=== PATIENT | male | born 1970 | race Caucasian/White ===

== ENCOUNTER 2017-06-23 17:25 | Emergency (ER) | payer BC, OTHER ==
[2017-06-23 17:31] VITALS: BP 131/84; PULSE 93; TEMP 98; BMI 36.9
--- NOTE | 2017-06-23 18:26 | PDOC ---
History of Present Illness - General Chief Complaint: Injury Stated Complaint: INJURY TO WRIST. Time Seen by Provider: 06/23/17 18:07 History Source: Patient Exam Limitations: No Limitations - History of Present Illness Initial Comments: 06/23/17 18:26 46-year-old male presents to the ED with complaints of left wrist pain. Patient states had fallen yesterday and now with pain upon movement. Patient denies recent injury to affected area, radiation of pain, or sensory changes distal of injury. Occurred: reports: just prior to arrival Severity: reports: mild Pain Location: reports: upper extremity Method of Injury: Yes: fall Associated Symptoms (Fall): denies symptoms Past History - Travel Traveled outside of the country in the last 30 days: No - Past Medical History Allergies/Adverse Reactions: Allergies Allergy/AdvReac Type Severity Reaction Status Date / Time No Known Allergies Allergy Verified 06/23/17 17:28 Home Medications: Ambulatory Orders NK [No Known Home Medication] 12/25/13 Other medical history: NONE - Psycho/Social/Smoking Cessation Hx Anxiety: No Suicidal Ideation: No Smoking History: Never smoked Have you smoked in the past 12 months: No Information on smoking cessation initiated: No Hx Alcohol Use: No Drug/Substance Use Hx: No Substance Use Type: None Patient Lives Alone: No Lives with/in: spouse/SO Review of Systems - Review of Systems Able to Perform ROS?: Yes Musculoskeletal: Yes: Joint Pain (left wrist), Joint Swelling (mild left wrist) Integumentary: No: Symptoms Reported Neurological: No: Paresthesia, Weakness *Physical Exam - Vital Signs Last Vital Signs Temp Pulse Resp BP Pulse Ox 98.0 F 93 H 18 131/84 100 06/23/17 17:29 06/23/17 17:29 06/23/17 17:29 06/23/17 17:29 06/23/17 17:29 - Physical Exam General Appearance: Yes: Nourished, Appropriately Dressed. No: Apparent Distress Extremity: positive: Normal Capillary Refill, Normal Inspection. negative: Normal Range of Motion (unble to fully dorsiflex the left wrist) Integumentary: positive: Normal Color, Warm, Moist Neurologic: positive: Motor Strength 5/5 (left hand grasp. ambulatory) ED Treatment Course - RADIOLOGY Radiology Studies Ordered: Category Date Time Status WRIST-LEFT [RAD] Stat Radiology 06/23/17 18:08 Ordered Medical Decision Making - Medical Decision Making 06/23/17 18:24 Patient status post fall complaining of left wrist pain. Patient had mild to no tenderness over the distal aspect of left radius. X-ray ordered. 06/23/17 18:45 X-ray with questionable commun. Left distal radial fracture. Patient placed in splint and given referral to Dr. Huertas *DC/Admit/Observation/Transfer Diagnosis at time of Disposition: Left wrist fracture Qualifiers: Encounter type: initial encounter Fracture type: closed Qualified Code(s): S62.102A - Fracture of unspecified carpal bone, left wrist, initial encounter for closed fracture - Discharge Dispostion Disposition: HOME Condition at time of disposition: Good - Referrals Referrals: Eloy De Leon MD [Primary Care Provider] - Wyatt Huertas MD [Staff Physician] - - Patient Instructions Printed Discharge Instructions: DI for Wrist Fracture Additional Instructions: Please follow-up with Dr. Lao as discussed and wear splint until seen. May take Motrin for discomfort and elevate as much as possible
== END 2017-06-23 18:57 | disposition home or self-care (01) ==
LOC: JERFT 17:25
PROC: 2W3DX1Z Immobilization of Left Lower Arm using Splint (ICD-10-PCS; principal; 2017-06-23)
DX: S52.515A Nondisplaced fracture of left radial styloid process, initial encounter for closed fracture (principal); W19.XXXA Unspecified fall, initial encounter; Y93.89 Activity, other specified; Y92.89 Other specified places as the place of occurrence of the external cause; Y99.8 Other external cause status
CPT/HCPCS: 73110-TC-LT; 99281-25

== ENCOUNTER 2021-05-23 21:13 | Inpatient (IN) | payer BC ==
[2021-05-24] MEDS ORDERED: ACETAMINOPHEN 1000 MG/100 ML VIAL (NON FORMULARY) IVPB ONE (00:04)
[2021-05-24] MEDS ORDERED: ACETAMINOPHEN INJECTION 100 ML IVPB ONE (00:16)
[2021-05-24] MEDS ORDERED: SODIUM CHLORIDE 0.9% 500 ML INFUS.BAG IV ONE (00:19)
[2021-05-24 01:08] LABS: BASO % 0.2 % (0-2.0); HEMATOCRIT 40.7 % (35.4-49); HEMOGLOBIN 13.8 GM/dL (11.7-16.9); LYMPH % 5.5 % (8-40); MCH 28.9 pg (25.7-33.7); MCHC 33.9 g/dl (32.0-35.9); MEAN CELL VOLUME 85.2 fl (80-96); MEAN PLT VOLUME 9.4 fl (7.5-11.1); NEUT % 88.3 % (42.8-82.8); PLATELET COUNT 212 10^3/uL (134-434); RBC 4.77 M/mm3 (4.00-5.60); RDW 13.4 % (11.9-15.9); VENOUS BASE EXCESS 1.1 mmol/L (-2-2); VENOUS O2 SATURATION 38.6 % (70-80); VENOUS PCO2 43.5 mmHg (38-52); VENOUS PH 7.399 (7.310-7.410); WHITE BLOOD COUNT 13.5 K/mm3 (4.0-10.0)
[2021-05-24 01:20] LABS: INR 1.18 (0.83-1.09); PROTHROMBIN TIME (PATIENT) 14.5 SEC (9.7-13.0)
[2021-05-24 01:22] LABS: ACTIVATED PTT 26.9 SECONDS (25.2-36.5)
[2021-05-24 01:36] LABS: CHLORIDE 104 mmol/L (98-107); SODIUM 137 mmol/L (136-145)
[2021-05-24] MEDS ORDERED: IBUPROFEN 600 MG TABLET (FP) PO ONE ×2 (01:36→01:52)
[2021-05-24 01:37] LABS: CALCIUM 8.4 mg/dL (8.5-10.1)
[2021-05-24 01:38] LABS: ALBUMIN 3.5 g/dl (3.4-5.0); ANION GAP 11 MMOL/L (8-16); BLOOD UREA NITROGEN 16.2 mg/dL (7-18); CO2 23 mmol/L (21-32); GLUCOSE,RANDOM 139 mg/dL (74-106)
[2021-05-24 01:42] LABS: BILIRUBIN,DIRECT 0.3 mg/dL (0.0-0.2); CREATININE 1.4 mg/dL (0.55-1.3); SGOT/AST 50 U/L (15-37); SGPT/ALT 100 U/L (13-61)
[2021-05-24 01:43] LABS: BILIRUBIN,TOTAL 0.6 mg/dL (0.2-1); LACTIC ACID 2.1 mmol/L (0.4-2.0); LDH 271 U/L (87-246); N-TERMINAL BNP 183.1 pg/ml (5-125); TOT PROT 7.2 g/dl (6.4-8.2)
[2021-05-24 01:44] LABS: ALK PHOS 138 U/L (45-117)
[2021-05-24] MEDS ORDERED: CEFTRIAXONE 1 GM in DEXTROSE 5%-WATER - 50 ML IVPB ONE (02:29)
[2021-05-24] MEDS ORDERED: AZITHROMYCIN IVPB 500 MG in DEXTROSE 5%-WATER - 250 ML IVPB ONE (02:29)
[2021-05-24] MEDS ORDERED: CEFTRIAXONE 1 GM/50 ML BAG ONE ×2 (02:57→09:21)
[2021-05-24] MEDS ORDERED: AZITHROMYCIN IVPB 500 MG/250 ML BAG IVPB ONE (02:58)
[2021-05-24] MEDS ORDERED: HEPARIN NA (PORCINE) 5,000 UNITS/ML 1ML VIAL ONE (09:20)
[2021-05-24] MEDS: SODIUM CHLORIDE 1,000 ML IV SCH (09:37)
[2021-05-24] MEDS: HEPARIN NA (PORCINE) 5,000 UNITS/ML 1ML VIAL SQ SCH ×2 (09:37→21:33)
[2021-05-24] MEDS ORDERED: CEFTRIAXONE 1 GM in DEXTROSE 5%-WATER - 50 ML IVPB SCH (10:00)
[2021-05-24 11:12] VITALS: BMI 39.8
[2021-05-24] MEDS: guaiFENesin/CODEINE 5 ML UNIT-DOSE CUPS PO PRN ×2 (11:58→21:33)
[2021-05-24 12:11] LABS: EPI CELLS 8 /uL (0-25.1); HYALINE CASTS 2 /uL (0-3.1); PH,URINE 5.5 (5.0-8.0); URINE APPEARANCE CLEAR; URINE BACTERIA 10 /uL (0-1359); URINE BILIRUBIN NEGATIVE (NEGATIVE); URINE COLOR YELLOW; URINE GLUCOSE (UA) NEGATIVE (NEGATIVE); URINE KETONE TRACE (NEGATIVE); URINE LEUK ESTERASE NEGATIVE (NEGATIVE); URINE NITRITE NEGATIVE (NEGATIVE); URINE PROTEIN 1+ (NEGATIVE); URINE RBC 15 /uL (0-23.9); URINE WBC 10 /uL (0-25.8)
[2021-05-24] MEDS: ALBUTEROL SO4 2.5/IPRATROPIUM 0.5 INH SOL 3 ML VIAL.NEB. NEB PRN ×2 (21:33→21:49)
[2021-05-24] MEDS ORDERED: ACETAMINOPHEN 500 MG TABLET (FP) PO ONE (21:46)
[2021-05-25] MEDS: SODIUM CHLORIDE 1,000 ML IV SCH ×2 (01:42→15:59)
[2021-05-25] MEDS ORDERED: DEXTROSE 5%-WATER 100 ML IVPB ONE (09:57)
[2021-05-25] MEDS: HEPARIN NA (PORCINE) 5,000 UNITS/ML 1ML VIAL SQ SCH ×2 (10:11→21:44)
[2021-05-25] MEDS: CEFTRIAXONE 2 GM in DEXTROSE 5%-WATER 2 GM/100 ML BAG IVPB SCH (10:11)
[2021-05-25] MEDS: AZITHROMYCIN IVPB 500 MG/250 ML BAG IVPB SCH (10:13)
[2021-05-25] MEDS: guaiFENesin/CODEINE 5 ML UNIT-DOSE CUPS PO PRN (10:13)
[2021-05-25 11:32] LABS: BASO % 0.9 % (0-2.0); EOS % 1.2 % (0-4.5); HEMATOCRIT 40.1 % (35.4-49); HEMOGLOBIN 13.3 GM/dL (11.7-16.9); LYMPH % 17.3 % (8-40); MCH 28.6 pg (25.7-33.7); MCHC 33.3 g/dl (32.0-35.9); MEAN CELL VOLUME 85.9 fl (80-96); MEAN PLT VOLUME 9.8 fl (7.5-11.1); NEUT % 69.6 % (42.8-82.8); PLATELET COUNT 194 10^3/uL (134-434); RBC 4.67 M/mm3 (4.00-5.60); RDW 13.6 % (11.9-15.9); WHITE BLOOD COUNT 7.1 K/mm3 (4.0-10.0)
[2021-05-25 11:59] LABS: BILIRUBIN,TOTAL 0.4 mg/dL (0.2-1); TOT PROT 6.6 g/dl (6.4-8.2)
[2021-05-25 12:00] LABS: CREATININE 1.1 mg/dL (0.55-1.3); PHOSPHOROUS 2.7 mg/dL (2.5-4.9)
[2021-05-25 12:02] LABS: BLOOD UREA NITROGEN 14.3 mg/dL (7-18); CALCIUM 8.4 mg/dL (8.5-10.1)
[2021-05-25 12:03] LABS: ALBUMIN 2.9 g/dl (3.4-5.0)
[2021-05-25] MEDS ORDERED: SODIUM CHLORIDE 0.45% 1,000 ML IV SCH (16:00)
[2021-05-26] MEDS: guaiFENesin/CODEINE 5 ML UNIT-DOSE CUPS PO PRN (02:17)
[2021-05-26 05:08] LABS: HEPATITIS C VIRUS EIA <0.1 s/co ratio (0.0-0.9)
[2021-05-26] MEDS ORDERED: DEXTROSE 5%-WATER 100 ML IVPB ONE (09:43)
[2021-05-26] MEDS: HEPARIN NA (PORCINE) 5,000 UNITS/ML 1ML VIAL SQ SCH ×2 (09:47→21:28)
[2021-05-26] MEDS: CEFTRIAXONE 2 GM in DEXTROSE 5%-WATER 2 GM/100 ML BAG IVPB SCH (09:47)
[2021-05-26] MEDS: AZITHROMYCIN IVPB 500 MG/250 ML BAG IVPB SCH (09:49)
[2021-05-26 15:54] LABS: PH,URINE 6.5 (5.0-8.0); URINE APPEARANCE CLEAR; URINE BILIRUBIN NEGATIVE (NEGATIVE); URINE COLOR YELLOW; URINE GLUCOSE (UA) NEGATIVE (NEGATIVE); URINE KETONE NEGATIVE (NEGATIVE); URINE LEUK ESTERASE NEGATIVE (NEGATIVE); URINE NITRITE NEGATIVE (NEGATIVE); URINE PROTEIN NEGATIVE (NEGATIVE)
[2021-05-26 17:07] LABS: MYCOPLASMA PNEUMONIAE,IG G AB 326 U/mL (0-99); MYCOPLASMA PNEUMONIAE,IGM AB <770 U/mL (0-769)
[2021-05-26 17:07] LABS: HEP B CORE AB, TOT Negative (Negative)
[2021-05-27] MEDS ORDERED: DEXTROSE 5%-WATER 100 ML IVPB ONE (09:38)
[2021-05-27 09:48] LABS: BLOOD UREA NITROGEN 14.2 mg/dL (7-18); CALCIUM 8.5 mg/dL (8.5-10.1)
[2021-05-27] MEDS: HEPARIN NA (PORCINE) 5,000 UNITS/ML 1ML VIAL SQ SCH ×2 (09:51→22:10)
[2021-05-27] MEDS: CEFTRIAXONE 2 GM in DEXTROSE 5%-WATER 2 GM/100 ML BAG IVPB SCH (09:51)
[2021-05-27] MEDS: AZITHROMYCIN IVPB 500 MG/250 ML BAG IVPB SCH (09:52)
[2021-05-27 09:53] LABS: BILIRUBIN,TOTAL 0.4 mg/dL (0.2-1)
[2021-05-27 09:54] LABS: TOT PROT 6.4 g/dl (6.4-8.2)
[2021-05-28 08:44] LABS: BASO % 1.2 % (0-2.0); EOS % 2.8 % (0-4.5); HEMATOCRIT 42.3 % (35.4-49); HEMOGLOBIN 14.6 GM/dL (11.7-16.9); MCH 29.2 pg (25.7-33.7); MCHC 34.4 g/dl (32.0-35.9); MEAN CELL VOLUME 84.7 fl (80-96); MEAN PLT VOLUME 9.1 fl (7.5-11.1); MONO % 4.9 % (3.8-10.2); NEUT % 68.1 % (42.8-82.8); PLATELET COUNT 282 10^3/uL (134-434); RDW 13.8 % (11.9-15.9); WHITE BLOOD COUNT 8.1 K/mm3 (4.0-10.0)
[2021-05-28 09:01] LABS: ALBUMIN 3.2 g/dl (3.4-5.0); CALCIUM 8.6 mg/dL (8.5-10.1)
[2021-05-28 09:02] LABS: BLOOD UREA NITROGEN 15.1 mg/dL (7-18)
[2021-05-28 09:06] LABS: BILIRUBIN,TOTAL 0.4 mg/dL (0.2-1); TOT PROT 6.5 g/dl (6.4-8.2)
[2021-05-28] MEDS ORDERED: cefTRIAXone SODIUM 1 GM VIAL ONE (09:31)
[2021-05-28] MEDS ORDERED: DEXTROSE 5%-WATER - 50 ML IVPB ONE (09:31)
[2021-05-28] MEDS: HEPARIN NA (PORCINE) 5,000 UNITS/ML 1ML VIAL SQ SCH (09:48)
[2021-05-28] MEDS ORDERED: CEFTRIAXONE 1 GM in DEXTROSE 5%-WATER - 50 ML IVPB SCH (10:00)
[2021-05-28] MEDS: AZITHROMYCIN IVPB 500 MG/250 ML BAG IVPB SCH (10:35)
[2021-05-28 22:35] VITALS: BP 161/119; PULSE 72; TEMP 98.3
[2021-05-29 18:09] LABS: ATYPICAL pANCA <1:20 titer (Neg:<1:20); C-ANCA <1:20 titer (Neg:<1:20)
== END 2021-05-28 20:21 | disposition home or self-care (01) | DRG 871 ==
LOC: JER 21:13 → JERBED 05-24 02:53 → J6S 05-24 10:25
PROVIDERS: ADMIT Internal Medicine; ATTEND Family Medicine
DX: A41.9 Sepsis, unspecified organism (principal); J18.9 Pneumonia, unspecified organism; N17.9 Acute kidney failure, unspecified; E87.2 Acidosis; M62.82 Rhabdomyolysis; E78.5 Hyperlipidemia, unspecified; R74.01 Elevation of levels of liver transaminase levels; E66.9 Obesity, unspecified; Z68.39 Body mass index [BMI] 39.0-39.9, adult; R31.29 Other microscopic hematuria
CPT/HCPCS: 36415; 71045-TC-FY; 71275-TC; 76705-TC; 80048; 80053; 81003; 82248; 82550; 82553; 82570; 82728; 82803; 83520; 83540; 83550; 83605; 83615; 83880; 84100; 84156; 84300; 84484; 85025; 85379; 85610; 85730; 86140; 86256; 86704; 86706; 86707; 86708; 86709; 86713; 86738; 86803; 87040; 87086; 87205; 87340; 87350; 87804; 87899; 93005; 93010; 94640; 99285-25; C9803; J0131; J1644; U0003; U0005

== ENCOUNTER 2021-08-18 04:37 | Day surgery (SDC) | payer BC ==
[2021-08-16 10:59] VITALS: BMI 39.7
[2021-08-18 10:14] VITALS: TEMP 97.7
[2021-08-18 10:52] VITALS: BP 125/83; PULSE 65
== END 2021-08-18 10:56 | disposition home or self-care (01) ==
LOC: JASU-ENDO 04:37
PROVIDERS: ATTEND Internal Medicine Gastroenterology
PROC: 0DBP8ZX Excision of Rectum, Via Natural or Artificial Opening Endoscopic, Diagnostic (ICD-10-PCS; principal; 2021-08-18 09:48)
DX: Z12.11 Encounter for screening for malignant neoplasm of colon (principal); Z83.71 Family history of colonic polyps; K62.1 Rectal polyp; K64.8 Other hemorrhoids
CPT/HCPCS: 88305-TC

== ENCOUNTER 2022-07-27 16:58 | Emergency (ER) | payer BC ==
[2022-07-27 17:17] VITALS: BP 151/91; PULSE 77; RESP 19; TEMP 98.7; BMI 40.8
== END 2022-07-27 19:04 | disposition home or self-care (01) ==
LOC: JER 16:58 → JERFT 16:58
DX: M25.562 Pain in left knee (principal); X50.0XXA Overexertion from strenuous movement or load, initial encounter
CPT/HCPCS: 73562-TC-LT-FY; 99283-25

== ENCOUNTER 2024-04-11 08:44 | Emergency (ER) | payer BC ==
[2024-04-11 08:57] VITALS: BP 154/79; PULSE 70; RESP 18; TEMP 98; BMI 41.1
== END 2024-04-11 10:54 | disposition home or self-care (01) ==
LOC: JERFT 08:44 → JER 08:44 → JERFT 10:54
DX: S96.911A Strain of unspecified muscle and tendon at ankle and foot level, right foot, initial encounter (principal); X50.9XXA Other and unspecified overexertion or strenuous movements or postures, initial encounter
CPT/HCPCS: 73630-TC-RT-FY; 99283-25